=== PATIENT | male | born 1970 ===

== ENCOUNTER 2022-01-15 09:18 | Day surgery (SDC) | payer OTHER ==
[2022-01-15] MEDS ORDERED: KETO10TA2 PO (12:18)
[2022-01-15] MEDS ORDERED: TYLENOL ARTHRI650 MG PO (12:18)
[2022-01-15] MEDS ORDERED: MIRALAX17 GM PO (12:18)
[2022-01-15] MEDS ORDERED: ULTRAM50 MG PO (12:18)
== END 2022-01-15 17:10 | disposition home or self-care (01) ==
LOC: CIR.AMB 09:18
PROVIDERS: ATTEND Surgery
DX: K42.0 Umbilical hernia with obstruction, without gangrene (principal); K43.6 Other and unspecified ventral hernia with obstruction, without gangrene; I10 Essential (primary) hypertension; Z86.16 Personal history of COVID-19; Z87.891 Personal history of nicotine dependence